=== PATIENT | male | born 1940 | race African-American/Black ===

== ENCOUNTER 2018-02-19 11:42 | Observation (INO) ==
[2018-02-19 17:39] LABS: Baso % (Auto) 0.8 % (0.0-2.0); Eos # (Auto) 0.1 th/mm3 (0.0-0.4); Hematocrit 39.9 % (39.0-51.0); Hemoglobin 13.3 gm/dL (13.0-17.0); Lymph # (Auto) 1.9 th/mm3 (1.0-4.8); Lymph % (Auto) 34.9 % (9.0-44.0); Mean Corpuscular HGB Conc 33.4 % (32.0-36.0); Mean Platelet Volume 9.3 fL (7.0-11.0); Mono # (Auto) 0.5 th/mm3 (0.0-0.9); Mono % (Auto) 10.1 % (0.0-8.0); Neut # (Auto) 2.9 th/mm3 (1.8-7.7); Neut % (Auto) 53.2 % (16.0-70.0); Platelet Count 244 th/mm3 (150-450); Red Blood Count 4.75 mil/mm3 (4.50-5.90); Red Cell Distribution Width 14.5 % (11.6-17.2); White Blood Count 5.4 th/mm3 (4.0-11.0)
[2018-02-19 17:48] LABS: Activated Partial Thrombo Time 27.9 sec (24.3-30.1); Bilirubin,Urine Negative (Negative); Clarity,Urine Hazy (Clear); Glucose,Urine (UA) Negative (Negative); Leukocyte Esterase,Urine Negative (Negative); Nitrite,Urine Negative (Negative); Specific Gravity,Urine 1.014 (1.002-1.035)
[2018-02-19 17:53] LABS: Color,Urine Dark-Yellow (Yellw/Straw)
--- NOTE | 2018-02-19 18:43 | ED ---
HPI General Chief complaint: Urogenital-Male Stated complaint: Trouble urinating Time Seen by Provider: 02/19/18 16:50 History of Present Illness HPI Narrative: This is a 77-year-old male with a history of hypertension, chronic kidney disease, BPH, COPD, presents today with complaints of hematuria. The patient reports it started a couple days ago. He reports passing large clots. Patient denies any previous history of passing blood in his urine. He states that sometimes he was unable to urinate secondary to the large clots. Is no reported fevers, chills. There is no reported abdominal pain. There is no flank pain. There are no other complaints at time of examination. Related Data Home Medications Medication Instructions Recorded Confirmed acyclovir 800 mg PO TID PRN 02/19/18 02/19/18 amlodipine 5 mg PO DAILY 02/19/18 02/19/18 baclofen 10 mg PO TID 02/19/18 02/19/18 doxazosin 2 mg PO DAILY 02/19/18 02/19/18 ferrous sulfate 325 mg PO DAILY 02/19/18 02/19/18 finasteride 5 mg PO DAILY 02/19/18 02/19/18 fluticasone 1 inh INHALATION Q12H 02/19/18 02/19/18 ipratropium-albuterol 3 ml INHALATION Q6-8H PRN 02/19/18 02/19/18 losartan 50 mg PO DAILY 02/19/18 02/19/18 vit D3-folic [id number] 1 tab PO DAILY 02/19/18 02/19/18 Allergies Allergy/AdvReac Type Severity Reaction Status Date / Time ragweed pollen Allergy Mild Unverified 01/06/17 16:01 Review of Systems Constitutional Denies chills and Denies fever(s) Eyes Reports system reviewed and no additional complaints, except as docu ENT Reports system reviewed and no additional complaints, except as docu Cardiovascular Denies system reviewed and no additional complaints, except as docu Respiratory Denies chest congestion, Denies cough and Denies dyspnea Gastrointestinal Denies abdominal pain, Denies nausea and Denies vomiting Genitourinary Reports hematuria, Reports difficulty urinating, Denies flank pain and Reports urinary frequency Musculoskeletal Denies back pain Neurologic Reports system reviewed and no additional complaints, except as docu [facility] Social History Social History Substance History: No History of Abuse Second Hand Smoke Exposure: No Smoking Status: Former smoker Tobacco Type: Cigarettes How Often Do You Have a Drink Containing Alcohol: Never Recent Travel in [facility] within the Last 8 Weeks: No Recent Out of Country Travel within the Last 8 Weeks: No Immunization History Tetanus Immunization: Unsure Exam Narrative Exam Narrative: GENERAL: Well-developed well-nourished male in no acute respiratory distress. SKIN: Focused skin assessment warm/dry. HEAD: Atraumatic. Normocephalic. EYES: No scleral icterus. No injection or drainage. ENT: No nasal bleeding or discharge. Mucous membranes pink and moist. NECK: Trachea midline. No JVD. Supple. CARDIOVASCULAR: Regular rate and rhythm. No murmur appreciated. RESPIRATORY: No accessory muscle use. Clear to auscultation. Breath sounds equal bilaterally. GASTROINTESTINAL: Abdomen soft, non-tender, nondistended. GENITOURINARY: Blood at the meatus. No testicular pain. No penile pain. MUSCULOSKELETAL: No obvious deformities. No clubbing. No cyanosis. No edema. NEUROLOGICAL: Awake and alert. No obvious cranial nerve deficits. PSYCHIATRIC: Appropriate mood and affect; insight and judgment normal. Course Initial Documented Vital Signs Temperature 98.0 F 02/19/18 11:47 Pulse Rate 90 02/19/18 11:47 Respiratory Rate 18 02/19/18 11:47 Blood Pressure 152/90 H 02/19/18 11:47 Pulse Oximetry 100 02/19/18 11:47 Last Documented Vital Signs Temperature 98.0 F 02/19/18 11:47 Pulse Rate 78 02/19/18 16:26 Respiratory Rate 17 02/19/18 16:26 Blood Pressure 152/90 H 02/19/18 11:47 Pulse Oximetry 100 02/19/18 16:26 Discharge Plan Discharge Disposition Patient Disposition: 30 Still Patient Discharge Details Diagnosis: Gross hematuria, Hypertension, Chronic kidney disease (CKD) Physicians Team ED Provider: Beto Malloy Primary Care Provider: UNKNOWN, Attending Provider: Laura Banda Other Providers: Ottoniel Putnam Discharge Interventions Interventions: Vital Signs Last Done: 02/19/18 16:26 Status ED Status: Admitted Observation Patient Medical Decision Making [facility] Narrative Medical decision making narrative: 77-year-old male with a history of BPH, hypertension, COPD, who presents today with complaints of passing blood in his urine. Patient has gross hematuria. He had a three-way catheter placed. Patient had 2 L of fluid flush through his bladder. There is initial clearing however upon cessation, he started having recurrent hematuria. Given this, patient will be admitted and have a urology consult. There is a call out to the [facility] hospitalist for admission. Medical Screen Exam Complete: Yes Emergency Medical Condition: Yes Differential Diagnosis Differential Diagnosis: Hemorrhagic cystitis versus nephritis versus bladder mass Lab Data Result diagrams: 02/19/18 17:15 02/19/18 18:30 Lab Results 02/19/18 02/19/18 02/19/18 Range/Units 17:15 17:15 17:15 WBC 5.4 (4.0-11.0) th/mm3 RBC 4.75 (4.50-5.90) mil/mm3 Hgb 13.3 (13.0-17.0) gm/dL Hct 39.9 (39.0-51.0) % MCV 84.0 (80.0-100.0) fL MCH 28.0 (27.0-34.0) pg MCHC 33.4 (32.0-36.0) % RDW 14.5 (11.6-17.2) % Plt Count 244 (150-450) th/mm3 MPV 9.3 (7.0-11.0) fL Neut % (Auto) 53.2 (16.0-70.0) % Lymph % (Auto) 34.9 (9.0-44.0) % [place] % (Auto) 10.1 H (0.0-8.0) % Eos % (Auto) 1.0 (0.0-4.0) % Baso % (Auto) 0.8 (0.0-2.0) % Neut # (Auto) 2.9 (1.8-7.7) th/mm3 Lymph # (Auto) 1.9 (1.0-4.8) th/mm3 [place] # (Auto) 0.5 (0.0-0.9) th/mm3 Eos # (Auto) 0.1 (0.0-0.4) th/mm3 Baso # (Auto) 0.0 (0.0-0.2) th/mm3 WBC Differential . Differential Comment Auto diff final PT 10.0 (9.8-11.6) sec INR 1.0 Ratio APTT 27.9 (24.3-30.1) sec Sodium (136-145) meq/L Potassium (3.5-5.1) meq/L Chloride (98-107) meq/L Carbon Dioxide (21.0-32.0) meq/L Anion Gap (5-15) meq/L BUN (7-18) mg/dL Creatinine (0.60-1.30) mg/dL Estimated GFR (>89) mL/min Random Glucose (74-106) mg/dL Calcium (8.5-10.1) mg/dL Total Bilirubin (0.2-1.0) mg/dL AST (15-37) U/L ALT (12-78) U/L Alkaline Phosphatase (45-117) U/L Total Protein (6.4-8.2) g/dL Albumin (3.4-5.0) g/dL Urine Color Dark-yellow H (Yellw/Straw) Urine Clarity Hazy H (Clear) Urine pH 6.0 (5.0-8.5) Ur Specific [place] 1.014 (1.002-1.035) Urine Protein 100 H (Neg-Trace) mg/dL Urine Glucose (UA) Negative (Negative) mg/dL Urine Ketones Negative (Negative) mg/dL Urine Occult Blood Large H (Negative) Urine Nitrate Negative (Negative) Urine Bilirubin Negative (Negative) Urine Urobilinogen Less than 2 (Less than 2) mg/dL Ur Leukocyte Esterase Negative (Negative) Urine RBC (0-3) /hpf Urine Yeast Rare H (None) /hpf Micro UA Comment Culture not ind Ur Microscopic Review Not Reportable Urine Culture Comments Culture not ind 02/19/18 Range/Units 18:30 WBC (4.0-11.0) th/mm3 RBC (4.50-5.90) mil/mm3 Hgb (13.0-17.0) gm/dL Hct (39.0-51.0) % MCV (80.0-100.0) fL MCH (27.0-34.0) pg MCHC (32.0-36.0) % RDW (11.6-17.2) % Plt Count (150-450) th/mm3 MPV (7.0-11.0) fL Neut % (Auto) (16.0-70.0) % Lymph % (Auto) (9.0-44.0) % [place] % (Auto) (0.0-8.0) % Eos % (Auto) (0.0-4.0) % Baso % (Auto) (0.0-2.0) % Neut # (Auto) (1.8-7.7) th/mm3 Lymph # (Auto) (1.0-4.8) th/mm3 [place] # (Auto) (0.0-0.9) th/mm3 Eos # (Auto) (0.0-0.4) th/mm3 Baso # (Auto) (0.0-0.2) th/mm3 WBC Differential Differential Comment PT (9.8-11.6) sec INR Ratio APTT (24.3-30.1) sec Sodium 141 (136-145) meq/L Potassium 4.2 (3.5-5.1) meq/L Chloride 107 (98-107) meq/L Carbon Dioxide 27.4 (21.0-32.0) meq/L Anion Gap 7 (5-15) meq/L BUN 23 H (7-18) mg/dL Creatinine 1.57 H (0.60-1.30) mg/dL Estimated GFR 52 L (>89) mL/min Random Glucose 78 (74-106) mg/dL Calcium 8.5 (8.5-10.1) mg/dL Total Bilirubin 0.6 (0.2-1.0) mg/dL AST 19 (15-37) U/L ALT 14 (12-78) U/L Alkaline Phosphatase 77 (45-117) U/L Total Protein 8.0 (6.4-8.2) g/dL Albumin 3.3 L (3.4-5.0) g/dL Urine Color (Yellw/Straw) Urine Clarity (Clear) Urine pH (5.0-8.5) Ur Specific [place] (1.002-1.035) Urine Protein (Neg-Trace) mg/dL Urine Glucose (UA) (Negative) mg/dL Urine Ketones (Negative) mg/dL Urine Occult Blood (Negative) Urine Nitrate (Negative) Urine Bilirubin (Negative) Urine Urobilinogen (Less than 2) mg/dL Ur Leukocyte Esterase (Negative) Urine RBC (0-3) /hpf Urine Yeast (None) /hpf Micro UA Comment Ur Microscopic Review Urine Culture Comments
[2018-02-19] MEDS ORDERED: Bisacodyl 10 MG Supp RECTAL PRN (18:46)
[2018-02-19] MEDS ORDERED: Acetaminophen 325 MG Tablet PO PRN ×2 (18:46→19:17)
[2018-02-19 18:49] LABS: Alanine Aminotransferase 14 U/L (12-78); Albumin 3.3 g/dL (3.4-5.0); Anion Gap 7 meq/L (5-15); Aspartate Aminotransferase 19 U/L (15-37); Blood Urea Nitrogen 23 mg/dL (7-18); Calcium 8.5 mg/dL (8.5-10.1); Carbon Dioxide 27.4 meq/L (21.0-32.0); Chloride 107 meq/L (98-107); Glomerular Filtration Rate 52 mL/min (>89); Glucose,Random 78 mg/dL (74-106); Potassium 4.2 meq/L (3.5-5.1); Sodium 141 meq/L (136-145)
[2018-02-19 18:57] LABS: Alkaline Phosphatase 77 U/L (45-117)
--- NOTE | 2018-02-19 20:25 | US ---
EXAM DATE: 02/19/2018 12:00 AM EDT AGE/SEX: 77 years / Male INDICATIONS: Increased lab values. CLINICAL DATA: This is the patient's initial encounter. Patient reports that signs and symptoms have been present for 1 day and indicates a pain score of 2/10. MEDICAL/SURGICAL HISTORY: . Increased lab values. None. COMPARISON: [facility], US KIDNEY, BILATERAL, 04/28/2017. . MEASUREMENTS: Right Kidney:__10.0 x 4.8 x 4.8 cm Left Kidney:__8.0 x 3.7 x 4.6 cm FINDINGS: Right Kidney: Increased echotexture. No mass or hydronephrosis. Left Kidney: Increased echotexture. No mass or hydronephrosis. Bladder: Khoury catheter is present. Bladder decompressed. Other: None. CONCLUSION: 1. Echogenic kidneys characteristic of medical renal disease. Multiple small renal cysts measuring u p to about 2 cm on the left and right. Khoury catheter in bladder. Bladder decompressed. Electronically signed by: Jr Garcia MD 02/19/2018 8:24 PM EDT
[2018-02-19] MEDS ORDERED: Acyclovir 800 MG Tablet PO PRN (20:43)
--- NOTE | 2018-02-19 20:48 | P.HPIM ---
History of Present Illness Primary Care Physician: UNKNOWN History of Present Illness: 77-year-old male history of hypertension, BPH, who presents with a 3-day history of progressively worsening hematuria with difficulty urinating, passing clots. He says he otherwise is feeling right. Denies any chest pain, shortness breath, nausea vomiting, Lantus, dizziness, fevers, chills. History positive for hypertension and BPH Surgical history of right thumb resection, left rotator cuff surgery, thyroid biopsy, left knee surgery Patient is a nondrinker, non-smoker. Denies illicit drugs. Family history reviewed with the patient found to be currently noncontributory. Review of Systems All other systems reviewed negative except as stated in HPI PMFSH - History History Provided By: Patient, Medical Record - Tobacco History Second Hand Smoke Exposure: No Tobacco Use In Past 30 Days: No Smoking Status: Former smoker Tobacco Type: Cigarettes - Alcohol History How Often Do You Have a Drink Containing Alcohol: Never - Substance Use History Substance History: No History of Abuse - Travel History Recent Travel in the [place] Within the Last 8 Weeks: No Recent Travel Out of the Country Within the Last 8 Weeks: No - Immunization History Tetanus Immunization: Unsure Medications and Allergies Active Medications: Active Medications Acetaminophen (Tylenol) 650 mg PO Q4H PRN PRN Reason: Headache, fever, pain 1-4 Al Hydroxide/Mg Hydroxide (Milk Of Magnesia Liq) 30 ml PO Q12H PRN PRN Reason: Mild Constipation Bisacodyl (Dulcolax Supp) 10 mg RECTAL DAILY PRN PRN Reason: SEVERE CONSITIPATION Lactulose (Lactulose Liq) 30 ml PO DAILY PRN PRN Reason: SEVERE CONSITIPATION Ondansetron HCl (Zofran Inj) 4 mg IV.PUSH Q6H PRN PRN Reason: NAUSEA OR VOMITING Sennosides (Senokot) 17.2 mg PO Q12H PRN PRN Reason: Moderate Constipation Allergies Allergy/AdvReac Type Severity Reaction Status Date / Time ragweed pollen Allergy Mild Unverified 01/06/17 16:01 Home Medications Medication Instructions Recorded Confirmed Type acyclovir 800 mg PO TID PRN 02/19/18 02/19/18 History amlodipine 5 mg PO DAILY 02/19/18 02/19/18 History baclofen 10 mg PO TID 02/19/18 02/19/18 History doxazosin 2 mg PO DAILY 02/19/18 02/19/18 History ferrous sulfate 325 mg PO DAILY 02/19/18 02/19/18 History finasteride 5 mg PO DAILY 02/19/18 02/19/18 History fluticasone 1 inh INHALATION Q12H 02/19/18 02/19/18 History ipratropium-albuterol 3 ml INHALATION Q6-8H PRN 02/19/18 02/19/18 History losartan 50 mg PO DAILY 02/19/18 02/19/18 History vit D3-folic [id number] 1 tab PO DAILY 02/19/18 02/19/18 History Exam Vital signs: Vital Signs 02/19/18 11:47 02/19/18 16:26 02/19/18 19:15 Temperature 98.0 F Pulse Rate 90 78 89 Respiratory Rate 18 17 Blood Pressure 152/90 H 151/71 H Pulse Oximetry 100 100 02/19/18 20:00 Temperature 98.1 F Pulse Rate 70 Respiratory Rate 18 Blood Pressure 192/86 H Pulse Oximetry 99 Intake & Output 02/19/18 02/19/18 02/20/18 06:59 18:59 06:59 Weight 73.028 kg Narrative: GENERAL: Patient sitting in bed. Appears comfortable. Alert and oriented x3. SKIN: Warm and dry. HEAD: Atraumatic. Normocephalic. EYES: Pupils equal and round. No scleral icterus. No injection or drainage. ENT: No nasal bleeding or discharge. Mucous membranes pink and moist. NECK: Trachea midline. No JVD. CARDIOVASCULAR: Regular rate and rhythm. RESPIRATORY: No accessory muscle use. Clear to auscultation. Breath sounds equal bilaterally. GASTROINTESTINAL: Abdomen soft, non-tender, nondistended. Hepatic and splenic margins not palpable. MUSCULOSKELETAL: Extremities without clubbing, cyanosis, or edema. No obvious deformities. NEUROLOGICAL: Awake and alert. No obvious cranial nerve deficits. Motor grossly within normal limits. Five out of 5 muscle strength in the arms and legs. Normal speech. Genitourinary. Patient with hematuria. No CVA tenderness. PSYCHIATRIC: Appropriate mood and affect; insight and judgment normal. Results - Labs CBC & Chem 7: 02/19/18 17:15 02/19/18 18:30 Labs: Short CBC 02/19/18 Range/Units 17:15 WBC 5.4 (4.0-11.0) th/mm3 Hgb 13.3 (13.0-17.0) gm/dL Hct 39.9 (39.0-51.0) % Plt Count 244 (150-450) th/mm3 BMP 02/19/18 18:30 Sodium 141 Potassium 4.2 Chloride 107 Carbon Dioxide 27.4 BUN 23 H Creatinine 1.57 H Calcium 8.5 Liver Function 02/19/18 Range/Units 18:30 Total Bilirubin 0.6 (0.2-1.0) mg/dL AST 19 (15-37) U/L ALT 14 (12-78) U/L Alkaline Phosphatase 77 (45-117) U/L Albumin 3.3 L (3.4-5.0) g/dL Urine 02/19/18 Range/Units 17:15 Urine Color Dark-yellow H (Yellw/Straw) Urine Clarity Hazy H (Clear) Urine pH 6.0 (5.0-8.5) Ur Specific [place] 1.014 (1.002-1.035) Urine Protein 100 H (Neg-Trace) mg/dL Urine Glucose (UA) Negative (Negative) mg/dL - Imaging Impressions Abdomen/Bladder Ultrasound 02/19/18 00:00 CONCLUSION: 1. Echogenic kidneys characteristic of medical renal disease. Multiple small renal cysts measuring up to about 2 cm on the left and right. Khoury catheter in bladder. Bladder decompressed. Caprini VTE Risk Assessment Caprini VTE Risk Assessment: Moderate/High Risk (score >= 2) Caprini Risk Assessment Model: Point Value = 1 Point Value = 2 Point Value = 3 Point Value = 5 Age 41-60 Minor surgery BMI > 25 kg/m2 Swollen legs Varicose veins or History of unexplained or recurrent spontaneous Oral contraceptives or hormone replacement Sepsis (< 1 month) Serious lung disease, including pneumonia (< 1 month) Abnormal pulmonary function Acute myocardial infarction Congestive heart failure (< 1 month) History of inflammatory bowel disease Medical patient at bed rest Age 61-74 Arthroscopic surgery Major open surgery (> 45 min) Laparoscopic surgery (> 45 min) Malignancy Confined to bed (> 72 hours) Immobilizing plaster cast Central venous access Age >= 75 History of VTE Family history of VTE Factor V Leiden Prothrombin [id number] Lupus anticoagulant Anticardiolipin antibodies Elevated serum homocysteine Heparin-induced thrombocytopenia Other congenital or acquired thrombophilia Stroke (< 1 month) Elective arthroplasty Hip, pelvis, or leg fracture Acute spinal cord injury (< 1 month) Prophylaxis Regimen: Total Risk Factor Score Risk Level Prophylaxis Regimen 0-1 Low Early ambulation 2 Moderate Order ONE of the following: *Sequential Compression Device (SCD) *Heparin 5000 units SQ BID 3-4 Higher Order ONE of the following medications: *Heparin 5000 units SQ TID *Enoxaparin/Lovenox 40 mg SQ daily (WT < 150 kg, CrCl > 30 mL/min) *Enoxaparin/Lovenox 30 mg SQ daily (WT < 150 kg, CrCl > 10-29 mL/min) *Enoxaparin/Lovenox 30 mg SQ BID (WT < 150 kg, CrCl > 30 mL/min) AND/OR *Sequential Compression Device (SCD) 5 or more Highest Order ONE of the following medications: *Heparin 5000 units SQ TID (Preferred with Epidurals) *Enoxaparin/Lovenox 40 mg SQ daily (WT < 150 kg, CrCl > 30 mL/min) *Enoxaparin/Lovenox 30 mg SQ daily (WT < 150 kg, CrCl > 10-29 mL/min) *Enoxaparin/Lovenox 30 mg SQ BID (WT < 150 kg, CrCl > 30 mL/min) AND *Sequential Compression Device (SCD) Assessment and Plan - Plan //Acute hematuria //Intermittent urinary inspection secondary to hematuria = Ultrasound with small renal cysts, no signs of obstruction. Continuous bladder irrigation Follow-up urology recommendations. Appreciate assistance //Hypertension. Blood pressure acceptable. Continue home medications. //CKD 3. Creatinine at baseline 1.61. Avoid nephrotoxins. //Chronic pain. Continue baclofen. Discussed Condition With: Patient, nurse, Dr. Banda
[2018-02-20 03:38] LABS: Baso % (Auto) 0.8 % (0.0-2.0); Eos # (Auto) 0.1 th/mm3 (0.0-0.4); Eos % (Auto) 1.1 % (0.0-4.0); Hematocrit 35.8 % (39.0-51.0); Lymph # (Auto) 0.9 th/mm3 (1.0-4.8); Lymph % (Auto) 19.6 % (9.0-44.0); Mean Corpuscular HGB Conc 33.5 % (32.0-36.0); Mean Corpuscular Volume 83.6 fL (80.0-100.0); Mean Platelet Volume 8.2 fL (7.0-11.0); Mono # (Auto) 0.5 th/mm3 (0.0-0.9); Mono % (Auto) 10.5 % (0.0-8.0); Neut # (Auto) 3.2 th/mm3 (1.8-7.7); Platelet Count 206 th/mm3 (150-450); Red Blood Count 4.28 mil/mm3 (4.50-5.90); Red Cell Distribution Width 13.7 % (11.6-17.2); White Blood Count 4.7 th/mm3 (4.0-11.0)
[2018-02-20 04:01] LABS: Calcium 9.2 mg/dL (8.5-10.1); Carbon Dioxide 29.1 meq/L (21.0-32.0); Potassium 4.4 meq/L (3.5-5.1)
[2018-02-20] MEDS ORDERED: Finasteride 5 MG Tablet PO SCH (09:00)
[2018-02-20] MEDS ORDERED: amLODIPine 5 MG Tablet PO SCH (09:00)
[2018-02-20] MEDS: Baclofen 10 MG Tablet PO SCH ×3 (09:05→18:31)
--- NOTE | 2018-02-20 10:10 | P.PN ---
Subjective Interval history: Follow-up for painless hematuria. Patient is currently doing well. He continues to undergo CBI. Discarded urine appears to be normal color. However urine in the Khoury catheter appears to be somewhat blood-tinged. No fever or chills. Physical Exam Vital signs: Vital Signs 02/19/18 11:47 02/19/18 16:26 02/19/18 19:15 Temperature 98.0 F Pulse Rate 90 78 89 Respiratory Rate 18 17 Blood Pressure 152/90 H 151/71 H Pulse Oximetry 100 100 02/19/18 20:00 02/19/18 22:06 02/20/18 00:00 Temperature 98.1 F 98.4 F Pulse Rate 70 78 Respiratory Rate 18 18 Blood Pressure 192/86 H 177/82 H 178/67 H Pulse Oximetry 99 02/20/18 08:00 Temperature 97.5 F L Pulse Rate 78 Respiratory Rate 16 Blood Pressure 160/88 H Pulse Oximetry 98 Intake & Output 02/19/18 02/20/18 02/20/18 18:59 06:59 18:59 Output Total 1600 / 1600 Balance -1600 / -1600 Weight 73.028 kg 73.128 kg Output: Urine Amount (Catheter) 1600 / 1600 3-way Urethral 1600 / 1600 Other: Bladder Irrigation Fluid - Amount Instilled 3-way Urethral 3,000 Bladder Irrigation Fluid - Amount Drained 3-way Urethral 3,000 Weight On Admission 73.13 kg Narrative: GENERAL: Alert, oriented x3, NAD. Khoury catheter in place. CBI in progress. SKIN: Warm and dry. HEAD: Normocephalic. EYES: No scleral icterus. No injection or drainage. NECK: Supple, trachea midline. No JVD or lymphadenopathy. CARDIOVASCULAR: Regular rate and rhythm without murmurs, gallops, or rubs. RESPIRATORY: Breath sounds equal bilaterally. No accessory muscle use. GASTROINTESTINAL: Abdomen soft, non-tender, nondistended. MUSCULOSKELETAL: No cyanosis, or edema. BACK: Nontender without obvious deformity. No CVA tenderness. - Urinary Catheter Management 3-way Urethral Cath placed during this visit: yes Reason for continuing: Gross Hematuria Insertion date: 02/19/18 Insertion time: 17:26 Results - Labs CBC & Chem 7: 02/20/18 03:06 02/20/18 03:06 Laboratory Results - last 24 hr 02/19/18 02/19/18 02/19/18 17:15 17:15 17:15 WBC 5.4 RBC 4.75 Hgb 13.3 Hct 39.9 MCV 84.0 MCH 28.0 MCHC 33.4 RDW 14.5 Plt Count 244 MPV 9.3 Neut % (Auto) 53.2 Lymph % (Auto) 34.9 [place] % (Auto) 10.1 H Eos % (Auto) 1.0 Baso % (Auto) 0.8 Neut # (Auto) 2.9 Lymph # (Auto) 1.9 [place] # (Auto) 0.5 Eos # (Auto) 0.1 Baso # (Auto) 0.0 WBC Differential . Differential Comment Auto diff final PT 10.0 INR 1.0 APTT 27.9 Sodium Potassium Chloride Carbon Dioxide Anion Gap BUN Creatinine Estimated GFR Random Glucose Calcium Total Bilirubin AST ALT Alkaline Phosphatase Total Protein Albumin Urine Color Dark-yellow H Urine Clarity Hazy H Urine pH 6.0 Ur Specific [place] 1.014 Urine Protein 100 H Urine Glucose (UA) Negative Urine Ketones Negative Urine Occult Blood Large H Urine Nitrate Negative Urine Bilirubin Negative Urine Urobilinogen Less than 2 Ur Leukocyte Esterase Negative Urine RBC Urine Yeast Rare H Micro UA Comment Culture not ind Ur Microscopic Review Not Reportable Urine Culture Comments Culture not ind 02/19/18 02/20/18 02/20/18 18:30 03:06 03:06 WBC 4.7 RBC 4.28 L Hgb 12.0 L Hct 35.8 L MCV 83.6 MCH 28.0 MCHC 33.5 RDW 13.7 Plt Count 206 MPV 8.2 Neut % (Auto) 68.0 Lymph % (Auto) 19.6 [place] % (Auto) 10.5 H Eos % (Auto) 1.1 Baso % (Auto) 0.8 Neut # (Auto) 3.2 Lymph # (Auto) 0.9 L [place] # (Auto) 0.5 Eos # (Auto) 0.1 Baso # (Auto) 0.0 WBC Differential . Differential Comment Auto diff final PT INR APTT Sodium 141 143 Potassium 4.2 4.4 Chloride 107 108 H Carbon Dioxide 27.4 29.1 Anion Gap 7 6 BUN 23 H 26 H Creatinine 1.57 H 1.63 H Estimated GFR 52 L 50 L Random Glucose 78 92 Calcium 8.5 9.2 Total Bilirubin 0.6 AST 19 ALT 14 Alkaline Phosphatase 77 Total Protein 8.0 Albumin 3.3 L Urine Color Urine Clarity Urine pH Ur Specific [place] Urine Protein Urine Glucose (UA) Urine Ketones Urine Occult Blood Urine Nitrate Urine Bilirubin Urine Urobilinogen Ur Leukocyte Esterase Urine RBC Urine Yeast Micro UA Comment Ur Microscopic Review Urine Culture Comments - Imaging Impressions Abdomen/Bladder Ultrasound 02/19/18 00:00 CONCLUSION: 1. Echogenic kidneys characteristic of medical renal disease. Multiple small renal cysts measuring up to about 2 cm on the left and right. Khoury catheter in bladder. Bladder decompressed. Assessment and Plan - Assessment (1) Gross hematuria Code(s): R31.0 - Gross hematuria Status: Acute (2) Hypertension Code(s): I10 - Essential (primary) hypertension Status: Acute (3) Chronic kidney disease Code(s): N18.9 - Chronic kidney disease, unspecified Status: Acute - Plan Mr. Coto is a pleasant 77-year-old -[place] male with a history of hypertension, BPH who presented to the emergency department on 01/19/2018 due to 3-day duration of painless hematuria. He denies any chest pain, shortness of breath, fever or chills. Painless hematuria Benign prostatic hyperplasia -Continue CBI. Urology consult pending. -Continue doxazosin 2 mg p.o. daily, finasteride 5 mg p.o. daily Chronic kidney disease stage III -Avoid nephrotoxins. Avoid contrast if MRI studies are indicated. Hypertension -We will discontinue amlodipine and start patient on nifedipine 60 mg daily. -If necessary, will initiate hydralazine as well. Full code. SCDs. (2) Hypertension Qualifiers: Hypertension type: unspecified Qualified Code(s): I10 - Essential (primary) hypertension (3) Chronic kidney disease Qualifiers: Chronic kidney disease stage: unspecified stage Qualified Code(s): N18.9 - Chronic kidney disease, unspecified
[2018-02-20 20:14] VITALS: RESP 18
[2018-02-20 23:24] VITALS: BP 121/73; PULSE 63; TEMP 98.7; O2SAT 97
[2018-02-21] MEDS ORDERED: amLODIPine 5 MG Tablet PO SCH (09:00)
== END 2018-02-21 00:51 | disposition home or self-care (01) ==
LOC: NEDA 11:42 → NEPC 11:42 → NEDA 19:20 → NEPFCDU 19:29
PROVIDERS: ADMIT Hospitalist; ATTEND Hospitalist